=== PATIENT | male | born 1960 | race Caucasian/White ===

== ENCOUNTER 2020-06-26 12:28 | Emergency (ER) | payer OTHER, SELFPAY ==
[2020-06-26 12:34] VITALS: BP 145/84; PULSE 91; RESP 18; TEMP 36.6; O2SAT 97
--- NOTE | 2020-06-26 12:49 | ED.GENADULT ---
HPI - General Adult General Chief complaint: Ear Stated complaint: EAR ACHE Time Seen by Provider: 06/26/20 12:49 Source: patient and RN notes reviewed Mode of arrival: ambulatory Limitations: no limitations History of Present Illness HPI narrative: 60-year-old male presents with complaints of left otalgia, itching, and drainage for the past 4 days. Pain increased over the past 24 hours. No treatment. Swimming 1 week ago and got water into ears. Decrease hearing out of LT ear. Denies URI symptoms, No high fevers or chills. Denies injury to the ear. No nasal drainage and congestion. Denies nausea, vomiting, tinnitus, and dizziness. The patient reports she have not been diagnosed with COVID-19. The patient reports she is not waiting for the results of a COVID-19 lab test. The patient reports she do not have fever, chills, weakness, fatigue, myalgia, or facial swelling. The patient reports she do not have a new or worsening cough or shortness of breath. Denies chest pain. The patient reports she do not have any rhinorrhea, congestion, sore throat, abdominal pain, and diarrhea. Tolerating po intake well. Denies recent traveling. Denies concerns for COVID-19 or exposures been home with limited outdoor exposure except for essential household needs, work, and return home. At this time, patient is not suspected of having COVID-19. Some parts of this dictation were generated by voice recognition software and may contain typographical and/or grammatical inaccuracies. Related Data Home Medications Medication Instructions Recorded Confirmed amlodipine 10 mg PO DAILY 06/26/20 06/26/20 bupropion HCl 75 mg PO TID 06/26/20 06/26/20 metoprolol succinate 50 mg PO DAILY 06/26/20 06/26/20 tamsulosin 0.8 mg PO DAILY 06/26/20 06/26/20 Allergies Allergy/AdvReac Type Severity Reaction Status Date / Time Penicillins Allergy Unknown Verified 06/26/20 12:42 Review of Systems Review of Systems: Narrative: CONSTITUTIONAL: Denies fever, chills, sweats. EYES: Denies visual changes, redness, discharge. ENT: Denies rhinorrhea, congestion, sore throat. Complains of LT otalgia, drainage, and itching. CARDIOVASCULAR: Denies chest pain, palpitations, edema. RESPIRATORY: Denies dyspnea, wheezing, cough. GASTROINTESTINAL: Denies abdominal pain, nausea, vomiting, diarrhea. GENITOURINARY: Denies dysuria, hematuria, abnormal discharge. SKIN: Denies rash or itching. MUSCULOSKELETAL: Denies acute back pain, joint pain, or myalgia. NEUROLOGIC: Denies numbness or focal weakness. PSYCHIATRIC: Denies anxiety or depression. All systems reviewed & are unremarkable except as noted in HPI and below. [facility] Past Medical History Medical History (Updated 06/26/20 @ 13:12 by TIMOTHY Arndt) Acute asthma flare Anxiety Clavicle fracture LT Collapsed lung LT History of BPH Hypertension Surgical History Surgical History (Updated 06/26/20 @ 13:12 by TIMOTHY Arndt) History of foot surgery bilateral for plantar fasciaitis Family History Family History (Updated 06/26/20 @ 13:12 by TIMOTHY Arndt) Father Hypertension Mother Diabetes mellitus Social History Social History (Updated 06/26/20 @ 13:13 by TIMOTHY Arndt) Smoking packs per day: 0.5 Smoking cigarettes per day: 10.0 Years smoked: 55 Smoking pack-years: 27.50 Smoking status: Current every day smoker Tobacco type: cigarettes Second hand tobacco smoke exposure: Yes Alcohol intake: current Substance use: never Living arrangements: with family Occupation/Education: occupation Gender identity (if verbalized by the patient): Male Sexual Orientation (if Verbalized by the Patient): Straight or Heterosexual Comments At time of signature, I have reviewed and agree with nursing past medical, surgical, social, and family history. Please see nursing chart for further information. There is no relevant family history
== END 2020-06-26 13:09 | disposition home or self-care (01) ==
PROVIDERS: Emergency Provider Nurse Practitioner Family; PCP Internal Medicine
DX: H60.92 Unspecified otitis externa, left ear (principal); H60.332 Swimmer's ear, left ear; F41.9 Anxiety disorder, unspecified; I10 Essential (primary) hypertension; F17.210 Nicotine dependence, cigarettes, uncomplicated
CPT/HCPCS: 99213; G0463

== ENCOUNTER 2022-02-11 09:41 | Emergency (ER) | payer OTHER, SELFPAY ==
[2022-02-11] VITALS (17 sets, daily range): BP systolic 154–173; BP diastolic 88–103; PULSE 83–109; RESP 12–24; TEMP 36.2; O2SAT 96–97
--- NOTE | ~2022-02-11 | XR_ITS ---
EXAMINATION: XR chest 1V portable 02/11/2022 12:04 INDICATION: Cough and chest tightness PROCEDURE: 2 view chest COMPARISON: No prior studies for comparison. FINDINGS: There is right basilar atelectasis. No focal pneumonia, edema or effusion. No pneumothorax. The cardiomediastinal silhouette is within normal limits. The lungs are hyperinflated which is consi stent with, but not diagnostic of chronic obstructive pulmonary disease. . IMPRESSION: 1: Right basilar atelectasis. Reviewed, dictated and finalized at location A.
--- NOTE | 2022-02-11 11:42 | ECG_ITS ---
Measurements Intervals [place] Rate: 94 P: 68 [place]: 173 QRS: 54 QRSD: 98 T: 64 QT: 359 QTc: 449 Interpretive Statements SINUS RHYTHM POSSIBLE ANTERIOR MYOCARDIAL INFARCTION , OF INDETERMINATE AGE [30 ms Q WAVE IN V3/V4, OR R < 0.2 mV IN V4] ABNORMAL ECG NO PREVIOUS ECG AVAILABLE FOR COMPARISON Electronically Signed On 02-11-2022 12:42:26 CDT by Ranulfo Maya M.D.
--- NOTE | 2022-02-11 11:46 | ED.GENADULT ---
HPI - General Adult General Chief complaint: Unspecified Stated complaint: throat is dry Time Seen by Provider: 02/11/22 11:23 Source: patient Mode of arrival: ambulatory Limitations: no limitations History of Present Illness HPI narrative: Patient is 61 years old white male presents with productive cough of green-yellow sputum over 2 weeks, started on Z-Jose Guadalupe without any improvement then started on another antibiotic for 10 days without any improvement. Patient also been complaining of dryness in the throat mainly on the right side was difficulty swallowing. Patient was seen by his regular doctor 2 weeks ago, by another nurse practitioner 1 week ago, had negative CT scan of the chest 3 days ago at [facility]. Patient had 3 doses of vaccine, tested negative for Covid 3 weeks ago, history of hypertension, asthma, smoking and drinking Related Data Home Medications Medication Instructions Recorded Confirmed amlodipine 10 mg PO DAILY 06/26/20 06/26/20 bupropion HCl 75 mg PO TID 06/26/20 06/26/20 metoprolol succinate 50 mg PO DAILY 06/26/20 06/26/20 tamsulosin 0.8 mg PO DAILY 06/26/20 06/26/20 Allergies Allergy/AdvReac Type Severity Reaction Status Date / Time Penicillins Allergy Unknown Verified 06/26/20 12:42 Review of Systems Review of Systems: CONSTITUTIONAL: Denies fever, chills, or sweats. EYES: Denies visual changes, redness, or discharge. ENT: Denies rhinorrhea, congestion, sore throat, or otalgia. CARDIOVASCULAR: Denies chest pain, palpitations, or edema. RESPIRATORY: Denies cough or dyspnea. GASTROINTESTINAL: Denies abdominal pain, nausea, vomiting, or diarrhea. GENITOURINARY: Denies dysuria or hematuria. SKIN: Denies rash or itching. MUSCULOSKELETAL: Denies back pain, joint pain, or myalgia. NEUROLOGIC: Denies headache, numbness, or weakness. PSYCHIATRIC: Denies anxiety or depression. [facility] Past Medical History Medical History Acute asthma flare Anxiety Clavicle fracture LT Collapsed lung LT History of BPH Hypertension Surgical History Surgical History History of foot surgery bilateral for plantar fasciaitis Family History Family History Father Hypertension Mother Diabetes mellitus Social History Social History Smoking packs per day: 0.5 Smoking cigarettes per day: 10.0 Years smoked: 55 Smoking pack-years: 27.50 Smoking status: Current every day smoker Tobacco type: cigarettes Second hand tobacco smoke exposure: Yes Alcohol intake: current Substance use: never Gender identity (if verbalized by the patient): Male Sexual Orientation (if Verbalized by the Patient): Straight or Heterosexual Exam Narrative: General appearance: Well-developed, well-nourished, labored breathing Skin: Normal color Head: Normocephalic, nontraumatic Eyes: Clear conjunctiva ENT: Erythematous oropharynx bilaterally, no swelling, no discharge, no lymphadenopathy Neck: Supple, nontender Chest and respiratory: Marked diminution of air entry bilaterally, few scattered fine wheezing mainly on the left side Heart: Regular rate/rhythm Abdomen: Soft, nontender, no organomegaly, quiet bowel sounds Vascular: Normal peripheral pulses, normal capillary refill. Musculoskeletal: Normal range of motion, nontender back Neurologic: Alert and oriented ?3, [employer] is normal as tested, no gross motor deficit Course Course Emergency Course: Stable Vital Signs Vital signs: Vital Signs Pulse Rate 10
[2022-02-11 12:05] LABS: Basophils Absolute Auto 0.1 K/mm3 (0.0-0.1); Basophils Percent Auto 0.6 % (0.2-1.2); Eosinophils Absolute Auto 0.4 K/mm3 (0-0.3); Eosinophils Percent Auto 2.5 % (0-4.4); Hematocrit 43.8 % (42.0-52.0); Hemoglobin 14.6 g/dL (14.0-18.0); Immature Granulocyte Absolute 0.32 K/mm3 (0.00-0.031); Immature Granulocyte Percent A 2.3 % (0-0.5); Lymphocytes Absolute Auto 3.96 K/mm3 (0.9-3.2); Lymphocytes Percent Auto 28.3 % (18.3-44.2); Mean Corpuscular HGB Conc 33.3 g/dl (32-36); Mean Corpuscular Hemoglobin 33.7 pg (26-34); Mean Corpuscular Volume 101.2 fl (80-100); Mean Platelet Volume 8.9 fl (7.4-10.4); Neutrophils Absolute Auto 8.3 K/mm3 (1.3-6.7); Neutrophils Percent Auto 59.3 % (45.5-73.1); Platelet Count Result 228 k/mm3 (150-375); Red Blood Count 4.33 M/mm3 (4.6-6.20); Red Cell Distribution Width 14.4 % (11.5-14.5)
[2022-02-11] MEDS: methylPREDNISolone SOD SUCC 125 MG VIAL 62.5 MG IV PUSH (12:08)
[2022-02-11] MEDS: IPRATROPIUM BR 0.02% INH SOLN 0.5 MG/2.5 ML VIAL INHALATION (12:09)
[2022-02-11] MEDS: ALBUTEROL SULFATE NEB 2.5 MG/0.5 ML INH 5 MG INHALATION (12:09)
[2022-02-11 12:26] LABS: Lactic Acid Reflex 0.8 mmol/L (0.7-2.1)
[2022-02-11 12:32] LABS: Magnesium 1.9 mg/dL (1.6-2.3)
[2022-02-11 12:34] LABS: Alanine Aminotransferase 93 U/L (4-50); Albumin Level 4.1 g/dL (3.5-5.1); Alkaline Phosphatase 78 U/L (38-126); Anion Gap 7 mmol/L (8-16); Aspartate Amino Transferase 53 U/L (17-59); Bilirubin,Total 0.7 mg/dL (0.2-1.3); Blood Urea Nitrogen 15 mg/dL (9-20); Calcium 8.5 mg/dL (8.4-10.2); Carbon Dioxide 27 mmol/L (22-30); Chloride 103 mmol/L (98-107); Estimated CRCL calculation 94 ml/min; Estimated Glomerular Filt Rate > 60; Glucose 104 mg/dL (65-110); Sodium 137 mmol/L (137-145)
[2022-02-11 12:38] LABS: Alveolar/Arterial O2 Gradient 5.9 mmHg; Base Excess ABG 1.6 mEq/l (+/-2.0); Fractional Inspired Oxygen 21 %; HCO3 ABG 26.9 mEq/l (22.0-26.0); Oxygen Content ABG 19.3 %vol (16.0-22.0); Oxygen Saturation ABG 96.8 % (95.0-100.0); Oxyhemoglobin 91.6 % THb (90.0-100.0); PCO2 ABG 44.8 mmHg (35.0-45.0); PO2 ABG 90.2 mmHg (80.0-100.0); Total Hemoglobin 14.9 g/dL (12.0-18.0); pH ABG 7.396 (7.350-7.450)
[2022-02-11 12:41] LABS: Modified Allen's Test Pass; Site Drawn LEFT RADIAL
[2022-02-11 12:42] LABS: NT Pro B Type Natriuretic Pept 37 pg/mL (5-100)
[2022-02-11 12:43] LABS: Influenza A QL RT-PCR Negative (Negative); Influenza B QL RT-PCR Negative (Negative); SARS-CoV-2 RNA PCR Negative
== END 2022-02-11 13:56 | disposition home or self-care (01) ==
PROVIDERS: Emergency Provider Emergency Medicine
DX: J44.1 Chronic obstructive pulmonary disease with (acute) exacerbation (principal); J02.9 Acute pharyngitis, unspecified; Z20.822 Contact with and (suspected) exposure to COVID-19; N40.0 Benign prostatic hyperplasia without lower urinary tract symptoms; I10 Essential (primary) hypertension; F41.9 Anxiety disorder, unspecified; F17.200 Nicotine dependence, unspecified, uncomplicated; F17.210 Nicotine dependence, cigarettes, uncomplicated
CPT/HCPCS: 36415; 36600; 71045; 80053; 82805; 83605; 83735; 83880; 85025; 87040; 87081; 87502; 87880; 93005; 94640; 96374; 99284; C9803; J2930; U0003; U0005

== ENCOUNTER 2024-06-08 08:28 | Outpatient (CLI) | payer MEDICARE, OTHER, SELFPAY ==
--- NOTE | ~2024-06-08 | PE_ITS ---
EXAMINATION: PET_PETPSMAST_PT DATE: 06/08/2024 11:25 INDICATION: Gastric cancer TECHNIQUE: 5.383 mCi of Locametz Ga-68([id number]) was administered i.v. Low dose computed trev ography (CT) images were acquired from the base of the brain to the base of the brain to the proximal thighs for attenuation correction and anatomic localization. Positron emission tomography (PET) imag es were acquired in the same distribution beginning 93 minutes after injection. Images including fuse d PET/CT images were reconstructed in axial, coronal, and sagittal planes. Automated exposure control technique was employed. The dose-length product was 1259.21mGy-cm. COMPARISON: None FINDINGS: Head/neck: Typical pattern of symmetric physiologic increased activity in the lacrimal, parotid and submandibula r glands as well as along the mucosa of the nasal and oral cavities, pharynx and hypopharynx. No path ologically enlarged cervical lymphadenopathy or suspicious foci of increased uptake in the visualized head or neck. Chest: Mild emphysema. Mild atelectasis in the bilateral lower lungs. No suspicious pulmonary nodules, pneum onia, pulmonary edema or pleural effusion. Heart size is normal. No pericardial effusion. Atheroscler otic coronary artery calcification. Normal caliber thoracic aorta. No pathologically enlarged or PSMA avid thoracic lymphadenopathy. Abdomen/pelvis/proximal thighs: Physiologic renal accumulation and excretion of activity in the kidneys, bladder and along portions o f ureters. Maximal PSMA activity in the bladder of 58.5 There are prominent wall thickening the bladd er which could be related to outlet obstruction. The prostate measures 4.6 x 4.2 cm with multiple met allic densities which could represent surgical clips or brachytherapy seeds. There is prominent incre ased PSMA activity with maximal SUV of of 28 located at a 1.5 x 1.0 cm low-attenuation defect at the central prostate and would favor urine activity within a central transurethral prostatectomy defect r ather than a focus of primary prostate cancer. Could however obscured and immediately adjacent focus of residual or recurrent disease. Normal degree and slightly heterogenous pattern of increased uptake throughout the liver and spleen without radiologic correlate or dominant PSMA avid lesion. The gallb ladder, pancreas and bilateral adrenal glands are normal. Moderate uptake scattered throughout the sammi wels with typical duodenal and proximal jejunal predominance and without radiologic correlate, also l ikely physiologic. There are few scattered colonic diverticula without adjacent inflammatory strandin g to suggest diverticulitis. No other abnormal foci of increased uptake or pathologically enlarged ly mphadenopathy in the abdomen, pelvis or proximal thighs. Musculoskeletal: Spondylosis, severe at L5-S1 and moderate at C5-C6 and mild throughout the remainder of the spine. No suspicious lytic, blastic or PSMA avid bone lesions. IMPRESSION: 1. Prominent activity likely related to the urine pool likely in the prostatic urethra at what appear s be a small central transurethral prostatectomy defect. This could however obscured residual or recu rrent disease in the immediately adjacent prostate. No evident metastatic disease. Reviewed, dictated and finalized at location A. IMPRESSION: 1. Prominent activity likely related to the urine pool likely in the prostatic urethra at what appears be a small central transurethral prostatectomy defect. This could however obscured residual or recurrent disease in the immediately ad jacent prostate. No evident metastatic disease.
== END 2024-06-08 08:29 | disposition home or self-care (01) ==
PROVIDERS: PCP Nurse Practitioner; Visit Provider Urology
DX: C61 Malignant neoplasm of prostate (principal)
CPT/HCPCS: 78815; A9596